=== PATIENT | male | born 1990 | race Caucasian/White ===

== ENCOUNTER 2017-01-17 09:59 | Emergency (ER) | payer SELFPAY ==
[2017-01-17] MEDS ORDERED: HYDROmorphone HCL INJ 2 MG/ML VIAL IM ONE (10:28)
[2017-01-17 10:30] VITALS: TEMP 98.2
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
--- NOTE | 2017-01-17 11:09 | RAD ---
Procedure: XR CHEST 2 VIEWS Exam Date: 01/17/2017 10:28 AM HALL MONITOR Ordering Provider: Patricia Rosa Clinical Indication: Cough Comparison: None Findings: Tracheostomy tube is seen 3.1 cm as above the sheri. The lungs are clear and well-aerated. No pleural effusion or pneumothorax. Cardiac silhouette is normal in size. Impression: No acute pulmonary process. Electronically signed by: Clif Berger MD 01/17/2017 11:08 AM HALL MONITOR
[2017-01-17 11:47] VITALS: BP 101/58; O2SAT 98
== END 2017-01-17 11:47 | disposition home or self-care (01) ==
LOC: ER 09:59
DX: G89.29 Other chronic pain (principal); R51 Headache; Z93.0 Tracheostomy status; Z79.899 Other long term (current) drug therapy; Z88.0 Allergy status to penicillin
CPT/HCPCS: 36415; 71020; 85025; J1170

== ENCOUNTER 2017-03-01 11:15 | Emergency (ER) | payer BC ==
[2017-03-01 11:24] VITALS: TEMP 96
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
[2017-03-01] MEDS ORDERED: ALBUTEROL SULFATE 2.5 MG/3 ML VIAL NEB ONE (11:47)
[2017-03-01] MEDS ORDERED: ACETYLCYSTEIN 20 % 6,000 MG/30 ML VIAL NEB ONE (11:48)
[2017-03-01] MEDS ORDERED: MORPHINE SULFATE INJ 10 MG/ML VIAL IV ONE (12:03)
[2017-03-01] MEDS ORDERED: PROMETHAZINE HCL INJ 25 MG/ML VIAL IM ONE (12:29)
[2017-03-01] MEDS ORDERED: MORPHINE SULFATE INJ 10 MG/ML VIAL IM ONE (12:41)
--- NOTE | 2017-03-01 12:45 | RAD ---
Study: Frontal and Lateral Views of the Chest. Indication: cough Comparison: January 17, 2017. Impression: Heart size normal. Lungs clear. Tracheostomy tube redemonstrated and appear stable. Electronically signed by: Nadir Hein MD 03/01/2017 12:[address] [facility]
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
[2017-03-01 12:51] VITALS: O2SAT 98
[2017-03-01] MEDS ORDERED: ACETYLCYSTEIN 20 % 6,000 MG/30 ML VIAL ONE (13:04)
[2017-03-01 14:15] VITALS: BP 138/62
[2017-03-01] MEDS ORDERED: ACETYLCYSTEIN 20 % 6,000 MG/30 ML VIAL NEB SCH (17:00)
== END 2017-03-01 14:15 | disposition home or self-care (01) ==
LOC: ER 11:15
DX: J95.00 Unspecified tracheostomy complication (principal); Z87.891 Personal history of nicotine dependence; Z88.0 Allergy status to penicillin; Z93.1 Gastrostomy status
CPT/HCPCS: 70360; 71020; J2270; J2550; J7611

== ENCOUNTER 2017-09-20 12:42 | Emergency (ER) | payer SELFPAY ==
[2017-09-20] MEDS ORDERED: traMADol HCL 50 MG TAB GT ONE (12:59)
[2017-09-20 13:10] VITALS: BP 117/72; TEMP 97.4; O2SAT 79
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
[2017-09-20] MEDS ORDERED: HYDROcodone 7.5MG/APAP 325MG 1 EA TAB GT ONE (14:09)
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
== END 2017-09-20 14:36 | disposition home or self-care (01) ==
LOC: ER 12:42
DX: S00.83XA Contusion of other part of head, initial encounter (principal); W22.8XXA Striking against or struck by other objects, initial encounter; Y92.9 Unspecified place or not applicable

== ENCOUNTER 2017-10-03 02:14 | Emergency (ER) | payer SELFPAY ==
[2017-10-03] MEDS ORDERED: ONDANSETRON ODT 8 MG TAB SL ONE (02:34)
[2017-10-03] MEDS ORDERED: MORPHINE SULFATE INJ 10 MG/ML VIAL IM ONE (02:34)
--- NOTE | 2017-10-03 02:39 | ED.PDOC ---
History of Present Illness - General Chief Complaint: GI Problem Stated Complaint: G-tube displaced Time Seen by Provider: 10/03/17 02:27 Information Source: patient Exam Limitations: no limitations - History of Present Illness Initial Comments: BARD G-TUBE CAME OUT. Abdominal Pain Onset Location: epigastric Pain Radiation: epigastric Quality: moderate Timing/Duration: 1 hour Improving Factors: nothing Worsening Factors: nothing Associated Symptoms: denies symptoms Review of Systems - Review of Systems Constitutional: States: no symptoms reported EENTM: States: no symptoms reported Respiratory: States: no symptoms reported Cardiology: States: no symptoms reported Gastrointestinal/Abdominal: States: abdominal pain Genitourinary: States: no symptoms reported Musculoskeletal: States: no symptoms reported Skin: States: no symptoms reported Neurological: States: no symptoms reported Endocrine: States: no symptoms reported Past Medical History (General) - Patient Medical History Hx Seizures: No Hx Stroke: No Hx Dementia: No Hx Asthma: No Hx of COPD: No Hx Cardiac Disorders: No Hx Congestive Heart Failure: No Hx Pacemaker: No Hx Hypertension: No Hx Thyroid Disease: No Hx Diabetes: No Hx Gastroesophageal Reflux: No Hx Renal Disease: No Hx Cancer: No Hx of HIV: No Hx Hepatitis C: No Hx MRSA: No - Vaccination History Hx Tetanus, Diphtheria Vaccination: Yes Hx Influenza Vaccination: No Hx Pneumococcal Vaccination: No - Social History Hx Tobacco Use: Yes Hx Alcohol Use: No Hx Substance Use: No Hx Substance Use Treatment: No Hx Depression: No Family Medical History - Family History Mother Family History: No Known Physical Exam - Physical Exam General Appearance: Well Developed, Well Hydrated, Well Nourished Eyes, Ears, Nose, Throat Exam: PERRL/EOMI Neck: non-tender Respiratory: chest non-tender Cardiovascular/Chest: normal peripheral pulses Gastrointestinal/Abdominal: normal bowel sounds, non tender, soft, no organomegaly, no pulsatile mass Extremity: normal range of motion, non-tender, normal inspection, no pedal edema Neurologic: no motor/sensory deficits, alert, normal mood/affect Progress - Progress Progress: 10/03/17 03:06 KUB WITH GASTROGRAFIN IS PERFORMED. I AM ABLE TO SEE THE GASTRIC FOLDS. SATISFACTORY PLACEMENT. Procedures - Additional Procedures Additional Procedures: gastric tube replacement - THE ABDOMINAL STOMA WAS PREPPED WITH BETADINE AND A LUBRICATED 20 CONG[place]ESE PETERSON CATHETER WAS INSERTED THERE WERE NO FEEDING TUBES AVAILABLE. TO FOLLOW IS A KUB WITH CONTRAST MATERIAL FOR TUBE PLACEMENT. THE PATIENT TOLERATED THE PROCEDURE WELL. Departure - Departure Clinical Impression: Gastrostomy tube dysfunction Time of Disposition: 03:08 Disposition: Discharge to Home or Self Care Departure Forms: ED Discharge - Pt. Copy, Patient Portal Self Enrollment Instructions: Enteral Feeding Diet: resume usual diet Home Medications: Ambulatory Orders Vlyfratrbiudm-Vjne-Ynawoquxvm [Fioricet] 1 ea PO Q8H PRN #21 tab 09/20/17
--- NOTE | 2017-10-03 03:38 | RAD ---
EXAM: SINGLE VIEW ABDOMEN RADIOGRAPH CLINICAL INDICATION: G-tube placement. COMPARISON: None currently available. FINDINGS: Percutaneous gastric feeding tube has been placed with tip in stomach. Small amount of injected water-soluble non barium based contrast was injected demonstrating intragastric tube tip position. No evidence of leakage. No gastric outlet obstruction. IMPRESSION: Percutaneous gastric feeding tube is in appropriate position. Electronically signed by: Patrick Carty MD 10/03/2017 3:37 AM CDT
[2017-10-04 17:46] VITALS: BP 137/61; TEMP 98.8; O2SAT 100
== END 2017-10-03 03:15 | disposition home or self-care (01) ==
LOC: ER 02:14
DX: K94.20 Gastrostomy complication, unspecified (principal); R10.13 Epigastric pain; Y83.8 Other surgical procedures as the cause of abnormal reaction of the patient, or of later complication, without mention of misadventure at the time of the procedure; Z87.891 Personal history of nicotine dependence
CPT/HCPCS: 74018; J2270

== ENCOUNTER 2017-11-05 00:27 | Emergency (ER) | payer SELFPAY ==
[2017-11-05 00:56] VITALS: TEMP 98.7; O2SAT 98
[2017-11-05] MEDS ORDERED: BUTORPHANOL TARTRATE 2 MG/ML VIAL IM ONE (01:14)
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
[2017-11-05 01:39] VITALS: BP 133/76
== END 2017-11-05 01:39 | disposition home or self-care (01) ==
LOC: ER 00:27
DX: G89.21 Chronic pain due to trauma (principal); M79.604 Pain in right leg; M79.605 Pain in left leg; Z98.890 Other specified postprocedural states; Z79.891 Long term (current) use of opiate analgesic; Z88.0 Allergy status to penicillin; Z87.891 Personal history of nicotine dependence

== ENCOUNTER 2018-07-08 04:38 | Emergency (ER) | payer SELFPAY ==
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
[2018-07-08] MEDS: HYDROcodone 10MG/APAP 325MG 1 EA TAB PO ONE (05:17)
[2018-07-08] MEDS: KETOROLAC TROMETHAMINE INJ 30 MG/ML VIAL IM ONE (05:18)
--- NOTE | 2018-07-08 05:33 | RAD ---
EXAM: XR Right Tibia and Fibula, 2 Views CLINICAL HISTORY: The patient is 28 years old and is Male; leg pain TECHNIQUE: Frontal and lateral views of the right tibia and fibula. COMPARISON: No relevant prior studies available. FINDINGS: BONES/JOINTS: Unremarkable. No acute fracture. No dislocation. SOFT TISSUES: Surgical clips are present within the soft tissues. Evidence of prior resection of the mid diaphysis of the fibula is present. The bone mineralization and contour is otherwise unremarkable. No radiopaque foreign body. IMPRESSION: Postsurgical change the fibula without acute findings. Electronically signed by: Mariella Pacheco MD 07/08/2018 5:31 AM CDT
--- NOTE | 2018-07-08 05:33 | RAD ---
EXAM: XR Chest, 1 View CLINICAL HISTORY: The patient is 28 years old and is Male; chest congestion TECHNIQUE: Frontal view of the chest. COMPARISON: Chest radiograph March 01, 2017. FINDINGS: LUNGS: Unremarkable. No consolidation. PLEURAL SPACE: Unremarkable. No pneumothorax. HEART: Unremarkable. No cardiomegaly. MEDIASTINUM: Unremarkable. BONES/JOINTS: Unremarkable. TUBES, LINES AND DEVICES: A tracheostomy tube is present with the tip between the thoracic inlet and sheri. IMPRESSION: No acute cardiopulmonary process. Electronically signed by: Mariella Pacheco MD 07/08/2018 5:31 AM CDT
[2018-07-08 06:18] VITALS: BP 141/80; TEMP 97.9; O2SAT 99
== END 2018-07-08 06:19 | disposition home or self-care (01) ==
LOC: ER 04:38
DX: G62.9 Polyneuropathy, unspecified (principal); M79.604 Pain in right leg; H44.521 Atrophy of globe, right eye; Z93.0 Tracheostomy status; Z98.890 Other specified postprocedural states; Z87.891 Personal history of nicotine dependence; Z79.899 Other long term (current) drug therapy; Z88.0 Allergy status to penicillin
CPT/HCPCS: 71045; 73590; J1885

== ENCOUNTER 2019-05-05 23:53 | Emergency (ER) | payer SELFPAY ==
[2019-05-06 00:28] VITALS: TEMP 96.6
--- NOTE | 2019-05-06 00:35 | ED.PDOC ---
History of Present Illness - General Chief Complaint: Respiratory Problem Stated Complaint: short of breath, broken trach piece Time Seen by Provider: 05/06/19 00:31 Source: patient Exam Limitations: no limitations - History of Present Illness Initial Comments: 29 yo M who presents for an exchange of the inner cannula of his tracheostomy. Reports his started to break a week ago, has continued to use it. Normally seen at [facility], trach placed two years ago. No other complaints. Allergies/Adverse Reactions: Allergies Penicillins Allergy (Verified 11/05/17 00:44) Home Medications: Ambulatory Orders Fhjnagztjxqax-Fvrh-Hewkqiqjmz [Fioricet] 1 ea PO Q8H PRN #21 tab 09/20/17 Xiyvnunpulwet-Amka-Eyvbqaeccf [Fioricet] 1 ea PO Q8H PRN #21 tab 11/05/17 Oyluadigcs-Qqhbltwabfhbj-Vyzfo [Fioricet] 1 cap PO TID PRN #20 cap 07/08/18 RX: Gabapentin 300 mg PO BID #30 cap 07/08/18 Review of Systems - Review of Systems Constitutional: States: other - tracheostomy inner cannula replacment EENTM: States: no symptoms reported Respiratory: States: no symptoms reported Cardiology: States: no symptoms reported Gastrointestinal/Abdominal: States: no symptoms reported Past Medical History (General) - Patient Medical History Hx Seizures: No Hx Stroke: No Hx Dementia: No Hx Asthma: Yes Hx of COPD: No Hx Cardiac Disorders: No Hx Congestive Heart Failure: No Hx Pacemaker: No Hx Hypertension: Yes Hx Thyroid Disease: No Hx Diabetes: No Hx Gastroesophageal Reflux: No Hx Renal Disease: No Hx Cancer: No Hx of HIV: No Hx Hepatitis C: No Hx MRSA: No Surgical History: other - Vaccination History Hx Tetanus, Diphtheria Vaccination: No Hx Influenza Vaccination: No Hx Pneumococcal Vaccination: No Immunizations Up to Date: No - Social History Hx Tobacco Use: Yes Hx Alcohol Use: Yes Hx Substance Use: No Hx Substance Use Treatment: No Hx Depression: No Family Medical History - Family History Mother Family History: No Known Physical Exam - Physical Exam General Appearance: Alert, Comfortable, No apparent distress, Other - Facial deformities Neck: non-tender, full range of motion, supple, other - Tacheostomy in place, c/d/i Respiratory: lungs clear, normal breath sounds, no respiratory distress, no accessory muscle use Cardiovascular/Chest: normal peripheral pulses, regular rate, rhythm Progress - Progress Progress: Looking through our available supplies, the correct inner cannula was not available. Pt was referred to ENT. I explained that emergent conditions may arise and to return to the ER for new, worsening, or any persistent conditions. I've explained the importance of f/u for recheck. All questions and concerns addressed at this time. Pt understands and agrees with plan. Pt well appearing, NAD, is stable for discharge. Alisia Lynn MD Emergency Medicine Physician Billing Number [id number] Departure - Departure Clinical Impression: Tracheostomy complication, unspecified Qualifiers: Tracheostomy complication: unspecified Qualified Code(s): J95.00 - Unspecified tracheostomy complication Time of Disposition: 00:32 Disposition: Discharge to Home or Self Care Health Concerns: condition: stable Departure Forms: ED Discharge - Pt. Copy, Patient Portal Self Enrollment Instructions: Tracheotomy (DC) Home Medications: Ambulatory Orders Vztszjthvsrlc-Tyas-Tljfuqejxh [Fioricet] 1 ea PO Q8H PRN #21 tab 09/20/17 Kogakvxqgkrix-Kslm-Jdjbluuaye [Fioricet] 1 ea PO Q8H PRN #21 tab 11/05/17 Ubgqvskbcj-Conhouqkuefjy-Itjrd [Fioricet] 1 cap PO TID PRN #20 cap 07/08/18 RX: Gabapentin 300 mg PO BID #30 cap 07/08/18 Additional Instructions: Follow up: [facility] As needed, if symptoms worsen ENT, Make appointment, two days, for follow up ENT specialist: [facility] [phone] [facility] [phone]
[2019-05-06 00:58] VITALS: BP 142/87; O2SAT 98
== END 2019-05-06 00:51 | disposition home or self-care (01) ==
LOC: ER 23:53
DX: J95.09 Other tracheostomy complication (principal); Z88.0 Allergy status to penicillin; Z79.899 Other long term (current) drug therapy; J45.909 Unspecified asthma, uncomplicated; I10 Essential (primary) hypertension; Z87.891 Personal history of nicotine dependence